=== PATIENT | female | born 1995 | race Two or more races ===

== ENCOUNTER 2017-11-26 15:38 | Emergency (ER) | payer MEDICAID ==
[~2017-11-26] VITALS: Ht 172.7 cm; Wt 54.4 kg
--- NOTE | 2017-11-26 15:45 | NUR ---
COUGH SINCE , FEELING SOB SINCE SATURDAY. PT SPEAKING FULL SENTENCES. VSS. NEG ACUTE DISTRESS.
[2017-11-26] MEDS ORDERED: IPRATROPIUM NEB FS 0.5 MG/2.5 ML AMPUL.NEB ONE (15:57)
[2017-11-26] MEDS ORDERED: ALBUTEROL FS 2.5 MG/3 ML VIAL.NEB ONE (15:57)
[2017-11-26] MEDS ORDERED: ALBUTEROL FS 2.5 MG/3 ML VIAL.NEB NEB ONE (16:00)
[2017-11-26] MEDS ORDERED: IPRATROPIUM NEB FS 0.5 MG/2.5 ML AMPUL.NEB NEB ONE (16:00)
[2017-11-26] MEDS ORDERED: IV NS 0.9% 1,000 ML BAG IV ONE (16:00)
[2017-11-26] MEDS ORDERED: methylPREDNISolone SOD SUCC 125 MG/2ML VIAL IV ONE (16:00)
--- NOTE | 2017-11-26 16:00 | NUR ---
SEEN BY MD VILLAFUERTE. RT CALLED FOR BREATHING TX.
--- NOTE | 2017-11-26 16:05 | NUR ---
CURRENTLY UNDERGOING XRAY
[2017-11-26] MEDS ORDERED: methylPREDNISolone SOD SUCC 125 MG/2ML VIAL ONE (16:06)
--- NOTE | 2017-11-26 16:15 | NUR ---
SALINE TY ESTABLISHED. MEDICATION GIVEN ORDERED. FLUIDS GIVEN ORDERD.
[2017-11-26 18:08] VITALS: BP 109/85
== END 2017-11-26 18:09 | disposition home or self-care (01) ==
LOC: ER 15:42
DX: J45.901 Unspecified asthma with (acute) exacerbation (principal); E86.0 Dehydration; Z87.01 Personal history of pneumonia (recurrent); Z88.8 Allergy status to other drugs, medicaments and biological substances
CPT/HCPCS: 71045; 94640; 94644; 96361; 96374; 99285; A4606; J2930; J7030; Z7610